=== PATIENT | male | born 1985 | race Caucasian/White ===

== ENCOUNTER → 2022-03-11 14:54 | Outpatient (CLI) | payer BC, SELFPAY ==
--- NOTE | ~2022-03-11 | CT_ITS ---
EXAMINATION: CT abdomen pelvis wo con DATE: 03/11/2022 15:11 INDICATION: Incisional hernia without obstruction or gangrene. TECHNIQUE: Computed tomography (CT) of the abdomen and pelvis was performed without intravenous contr ast. Automated exposure control and iterative reconstruction technique were employed. The dose-length product was 911.12 mGy-cm. COMPARISON: None. FINDINGS: The visualized portions of the lung bases demonstrate mild atelectasis versus scarring on t he right. No pleural effusion. The heart size is normal. No pericardial effusion. The liver, gallblad krzysztof, spleen, pancreas, adrenal glands, and kidneys are normal. There is no urolithiasis. There is a 2 .6 x 2.0 cm mass at the posterior superior surface of the liver. Fluid and calcifications are noted a djacent to this mass. There is a supraumbilical ventral hernia containing nonobstructed small bowel. There is a supraumbilical hernia containing fat. The appendix is not visualized. There are no patholo gically enlarged lymph nodes. There is no free intraperitoneal fluid. There is mild thoracolumbar spo ndylosis. IMPRESSION: 1. Supraumbilical ventral hernias, one of which contains nonobstructed small bowel. 2. 2.6 cm mass at the posterior superior surface of the liver. This finding may be scarring from prio r trauma, infection, or surgery. Peritoneal metastatic disease cannot be excluded. Comparison with ou tside imaging may be useful. Reviewed, dictated and finalized at location A. IMPRESSION: 1. Supraumbilical ventral hernias, one of which contains nonobstructed small trell wel. 2. 2.6 cm mass at the posterior superior surface of the liver. This finding may be scarring from prior trauma, infection, or surgery. Peritoneal metastatic di sease cannot be excluded. Comparison with outside imaging may be useful.
== END ==
DX: K43.2 Incisional hernia without obstruction or gangrene (principal)
CPT/HCPCS: 74176

== ENCOUNTER 2022-05-05 14:04 | Outpatient (CLI) | payer BC, SELFPAY | END 2022-05-05 14:05 | disposition home or self-care (01) | LOC: ANHSURGERY 14:06 | PROVIDERS: Visit Provider Surgery | DX: K43.2 Incisional hernia without obstruction or gangrene (principal); Z01.818 Encounter for other preprocedural examination | CPT/HCPCS: 36415; 86850; 86900; 86901 ==

== ENCOUNTER 2022-05-12 00:25 | Day surgery (SDC) | payer BC, SELFPAY ==
--- NOTE | 2022-04-27 13:31 | PC.NURSE ---
Report to the Outpatient Waiting Room, entrance under the green pavilion located off [address], at time __1000 on date __05/12/22 . Planned Procedure Time: __1200 . Time changes happen often and if your time is changed the preop area will call you the afternoon before. - You and your visitor will be asked to self-screen and do not enter if you have any COVID symptoms. - Only one visitor is requested with a max of two and NO children visitors are allowed at this time. - The patient visitor may be requested to leave or wait in car when not with patient due to distancing restrictions. - A mask is optional within the hospital. Patients may have clear liquids (water, carbonated beverages, clear teas, apple juice) until 3 hours prior to surgery with a maximum of 20 ounces. - No food from midnight until time of surgery - Infants may have breast milk until 4 hours before surgery, formula 6 hours prior to surgery. - Children will be allowed to drink immediately following surgery. If applicable, please bring a bottle or sippy cup to assist with drinking. Juice, water, soda, and popsicles are readily available. For infants on formula, please bring formula the day of surgery. Pacifiers are allowed. Take the following medications with a SIP of water the morning of surgery: ___NONE Medications to discontinue per physician NONE Date to take last dose HIBICLENS SHOWER MORNING OF SURGERY Please no make-up, nail maltese, hairspray, perfume, deodorant, or body powder the day of surgery. No jewelry (including any body piercings) or valuables the day of surgery, leave them at home. Please take a shower or bath the night before, or the morning of, surgery with an antibacterial soap. Wear comfortable, loose fitting clothing. Children are encouraged to wear pajamas. - Jewelry must be removed prior to entering the operating room. Rings and piercings that are not removed may be cut off. - The hospital will not accept responsibility for valuables. - Please leave all valuables, including medications, at home the day of surgery. If you are going home after surgery, a licensed truck driver flatbed must drive you home. - NO public transportation without another adult if you receive anesthesia. - We recommend that an adult stay with you for 24 hours following discharge. - We also recommend that you do not drive, make important decision, drink alcoholic beverages, or take any drugs that were not prescribed by your health care provider for at least 24 hours after your discharge time. For Pediatric surgeries, we recommend two adults accompany the child home. Follow any additional instructions given to you from your surgeon. If you or anyone in your household have experienced Covid symptoms in the past week, please notify your surgeon or the nurse liaison at the phone number below for possible testing. Telephone instructions given to __PATIENT and asked if any additional questions and then verbalized understanding. Patient advised to call surgeon office or pre surgery nurse liaison [phone] if any additional questions.
[2022-04-27 13:42] VITALS: BMI 30.7
[2022-05-12] VITALS (11 sets, daily range): BP systolic 131–147; BP diastolic 80–102; PULSE 72–98; RESP 15–18; TEMP 36.3–36.6; O2SAT 94–100
[2022-05-12] MEDS: ACETAMINOPHEN 500 MG TABLET 1000 MG PO (10:39)
[2022-05-12] MEDS: LACTATED RINGERS 1,000 ML 30 ML IV CONT (10:39)
[2022-05-12] MEDS: KETOROLAC 15 MG/ML VIAL (*BKC) IV PUSH (10:40)
--- NOTE | 2022-05-12 11:21 | WPDANESEPPF ---
Anes - Initial Pre Proc Eval Procedure: Operation Date: 05/12/22 12:00 Proposed Procedures p Robotic Assisted Repair of Recurrent Incisional Hernia with Mesh - Jeri Booker MD Date/Time: 05/12/22 11:21 Surgeon: Jeri Booker MD Pre Op Diagnosis: Recurrent Incisional Hernia Patient Data Age: 37 Gender: M Height: 1.8 m Weight: 101.5 kg Last Vital Signs Temp 97.3 F L 05/12/22 10:14 Pulse 76 05/12/22 10:14 Resp 16 05/12/22 10:14 BP 147/82 H 05/12/22 10:14 Pulse Ox 98 05/12/22 10:14 O2 Del Method Room Air 05/12/22 10:14 Allergies Allergy/AdvReac Type Severity Reaction Status Date / Time codeine AdvReac Severe Itching Verified 05/12/22 10:19 hydrocodone AdvReac Severe Itching Verified 05/12/22 10:19 oxycodone [From Percocet] AdvReac Severe Itching Verified 05/12/22 10:19 Home Medications Medication Instructions Recorded Confirmed Type naproxen sodium 220 mg capsule 220 mg PO ONCE PRN Pain 03/21/22 05/12/22 History (Aleve) Patient hx anesthesia problems: post op nausea/vomiting Family hx anesthesia problems: none Results Review: All pre-operative results and documents have been reviewed as part of the pre-operative evaluation. 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 Spiritual care concerns: No Anes - Eval Final PreProcedure Day of Procedure 05/12/22 11:21 Patient weight: obese Heart: regular rate and rhythm Lungs: clear to auscultation Airway: Mallampati scale class II (has two upper front teeth veneers that have come out in the past from eating pork chops) Neurological: alert and oriented Last oral intake: >/= 8 hours ASA classification: II Emergent: no Anesthetic plan: proceed Anesthesia type and monitoring: general ETT and standard monitoring Results Review: All pre-operative results and documents have been reviewed as part of the pre-operative evaluation. Informed Consent: The patient's anesthetic plan and its attendant risks and benefits were discussed with the patient/family/POA. Questions were solicited and answers provided to the satisfaction of the patient/family/POA.
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
--- NOTE | 2022-05-12 11:56 | WPDHPUPDATE1 ---
History and Physical Update Update Date/Time: 05/12/22 11:56 History and Physical has been reviewed, including an updated exam of the patient. There are NO changes in the patient's condition. Risks, benefits, and alternatives have been discussed and questions answered. Patient agrees to proceed with procedure.
[2022-05-12] MEDS: ceFAZolin 2 GM/D5W 50 ML 2 GM/50 ML BAG IVPB (12:00)
[2022-05-12] MEDS: BUPIVACAINE/EPINEPHRINE 0.5% 30 ML VIAL INFILTRATE (12:50)
--- NOTE | 2022-05-12 15:11 | W.PM.PROC2 ---
Procedure Note - Detailed Date of Procedure 05/12/22 Pre-op Diagnosis Recurrent Incisional Hernias Post-op Diagnosis Same Procedure Performed Robotic assisted repair multiple supraumbilical recurrent incisional hernias Surgeon Jeri Booker MD Anesthesia General Indications 37-year-old male with multiple recurrent supraumbilical incisional hernias Findings multiple supraumbilical incisional hernias times 3, largest just superior to the umbilicus measuring approximately 6 cm Description of Procedure The patient was taken the operating room placed in the supine position. After adequate induction of general anesthesia, the patient was prepped and draped in normal sterile fashion. A time-out was then done to verify the patient's identity as well as the procedure being performed. I began by making a 5 mm incision in the left upper quadrant. Through this, a Veress needle was placed into the peritoneal cavity and CO2 gas was insufflated. After adequate pneumoperitoneum was achieved, a 5 mm trocar was placed through this incision. I then placed the laparoscope through this trocar site and under direct visualization I placed a 8 mm port in the left mid abdomen as well as an additional 8 mm port in the left lower abdomen. I then moved the camera to the lower port and replaced the 5 mm port with a 12 mm airport. The robot was then docked to the 3 port sites. I then went to the robotic console. I began by identifying the multiple hernias. A moderate-sized incarcerated hernia was noted in the supraumbilical region. Using graspers, I was able to reduce this hernia. The hernia was noted to contain a large amount of preperitoneal fat and omentum. Once reduced, I also reduced and dissected out the hernia sac. This defect was noted to be approximately 6 cm. Just superior to this defect was 2 smaller defects measuring 2 cm each. These were also in the midline. I was able to reduce this defects as well. There was noted to be dense adhesions to the anterior abdominal wall as well and these were taken down sharply. Once I completed the dissection, I then closed the multiple defects with 0 strata fix suture. Of note, this required multiple sutures to get the defects completely closed. I then placed a 20x[address] mesh into the abdominal cavity. The positional stitch was placed in the middle of the mesh and brought up centering the mesh over the defect. Once this was done, I used 2 0 V lock suture x 2 to circumferentially suture the mesh to the abdominal. Once the mesh was completely sutured in, I was happy with our tension-free repair. The mesh was noted to have good overlap of the defects. I then removed the positioning device. At this point, the robot was undocked and all ports were removed. I then closed the 12 mm port site with an 0 Vicryl [id number] suture at the fascial level. All port sites were then closed with 4 O Monocryl subcuticular suture. The patient tolerated the procedure well, is extubated in the operating room postoperative, OB transferred to the recovery room in stable condition. Implants 20x[address] cm [address] mesh Estimated Blood Loss 20 Drains No Packing No Pathology None sent Complications No immediate complications Condition Stable Disposition PACU [facility] Billing Surgery - Charge Forward: Surgery Billing
[2022-05-12] MEDS: ONDANSETRON INJ 4 MG/2 ML VIAL IV PUSH (15:13)
[2022-05-12] MEDS: fentaNYL CITRATE INJ (*CRX) 100 MCG/2 ML VIAL 25 MCG IV PUSH ×8 (15:21→16:50)
[2022-05-12] MEDS: diphenhydrAMINE HCl INJ 50 MG/ML VIAL 25 MG IV PUSH (16:14)
[2022-05-12] MEDS: SCOPOLAMINE 1.5 MG PATCH TRANSDERM (16:14)
[2022-05-12] MEDS: oxyCODONE HCL (*CRX) 5 MG TAB IR PO (17:06)
--- NOTE | 2022-05-12 17:09 | SUR.PHASEI ---
FENTANYL 25 MCG GIVEN GIVEN AT 1650 & 1655
--- NOTE | 2022-05-12 17:26 | SUR.PHASEII ---
disregard last note from obey yeager. documentation error from this nurse. dose correction in jul.
== END 2022-05-12 18:20 | disposition home or self-care (01) ==
PROVIDERS: Visit Provider Surgery
PROC: (CPT 49656; principal; 2022-05-12 12:00)
DX: K43.2 Incisional hernia without obstruction or gangrene (principal); E66.9 Obesity, unspecified; Z68.31 Body mass index [BMI] 31.0-31.9, adult
CPT/HCPCS: 49656; S2900; A9270; C1781; J0690; J1100; J1170; J1200; J1885; J2250; J2405; J2704; J2710; J3010; J7030; J7120